=== PATIENT | female | born 1955 | race Caucasian/White ===

== ENCOUNTER → 2024-03-29 07:38 | Outpatient (REF) | payer OTHER, SELFPAY | LOC: HWWDC 07:38 | PROVIDERS: ATTENDING PHYSICIAN Nurse Practitioner Family | DX: Z12.31 Encounter for screening mammogram for malignant neoplasm of breast (principal); M85.80 Other specified disorders of bone density and structure, unspecified site | CPT/HCPCS: 77063; 77067; 77080 ==

== ENCOUNTER → 2024-08-30 08:51 | Outpatient (REF) | payer OTHER, SELFPAY | LOC: HWRAD 08:51 | PROVIDERS: ATTENDING PHYSICIAN Nurse Practitioner Family | DX: M25.569 Pain in unspecified knee (principal) | CPT/HCPCS: 73564 ==

== ENCOUNTER → 2025-05-02 12:22 | Outpatient (REF) | payer OTHER, SELFPAY | LOC: HWRAD 12:22 | PROVIDERS: ATTENDING PHYSICIAN Nurse Practitioner Family | DX: E04.1 Nontoxic single thyroid nodule (principal) | CPT/HCPCS: 76536 ==

== ENCOUNTER → 2025-06-14 13:44 | Outpatient (REF) | payer OTHER, SELFPAY | LOC: HWWDC 13:44 | PROVIDERS: ATTENDING PHYSICIAN Nurse Practitioner Family | DX: Z12.31 Encounter for screening mammogram for malignant neoplasm of breast (principal) | CPT/HCPCS: 77063; 77067 ==